=== PATIENT | male | born 1995 | race Caucasian/White ===

== ENCOUNTER 2025-02-17 05:44 | Emergency (ER) | payer SELFPAY ==
--- NOTE | ~2025-02-17 | CT_ITS ---
CLINICAL HISTORY: left facial numbness CT head without contrast Comparison: None provided Findings: No intra-axial mass, midline shift, hydrocephalus, or acute hemorrhage. No significant atrophy-like change or white matter disease. Left maxillary mucosal thickening and a right maxillary mucous retention cyst is present. The remaining paranasal sinuses and mastoid air cells are clear. The orbits are unremarkable. There is no acute fracture. IMPRESSION: No acute intracranial findings. This document has been electronically signed by: Rober Eller MD on 02/17/2025 07:12:35
[2025-02-17 05:47] VITALS: BP 139/97; PULSE 100; RESP 15; TEMP 36.7; O2SAT 99; BMI 40.0
[2025-02-17 06:00] VITALS: BP 139/97; PULSE 100; RESP 15; TEMP 36.7; O2SAT 99
--- NOTE | 2025-02-17 06:01 | PC.NURSE ---
RN did a neuro assessment on pt. Neuros intact no deficit.
--- NOTE | 2025-02-17 06:19 | ECG_ITS ---
Test Reason : LEFT FACIAL NUMBNESS Blood Pressure : */* mmHG Vent. Rate : 80 BPM Atrial Rate : 80 BPM P-R Int : 142 ms QRS Dur : 84 ms QT Int : 358 ms P-R-T Axes : 31 15 -10 degrees QTcB Int : 412 ms Normal sinus rhythm Normal ECG When compared with ECG of 21-Apr-2018 17:34, No significant change was found Referred By: Dinah Haynes Electronically Signed By: RADHA KAISER
--- NOTE | 2025-02-17 06:19 | ED.GENADULT ---
HPI - General Adult General Chief complaint: General Medical Stated complaint: left side of face is numb Time Seen by Provider: 02/17/25 06:07 Source: patient and family Mode of arrival: ambulatory Limitations: no limitations History of Present Illness ED Provider: DR. Haynes HPI narrative: 29-year-old male came in for evaluation tingling feeling part of the left cheek since he woke up in the morning, no trauma to the face, no dental plain pain, no headache, vision, no fever, no chills, no sinus problem, no facial weakness or droop. Then patient started to have numbness at the tip of left hand fingers with no weakness, no slurred speech, no double vision, patient's symptoms lasted for about 3-5 minutes, now just feels some weird feeling/tingling sensation on the left side cheek. Patient feels anxious about it. Related Data Allergies Allergy/AdvReac Type Severity Reaction Status Date / Time No Known Allergies Allergy Verified 02/17/25 05:50 Review of Systems Review of Systems: All other systems are reviewed and are negative Constitutional: Reports as per HPI and Reports no additional constitutional complaints Eyes: Reports as per HPI and Reports no additional eye complaints Reports system reviewed and no additional complaints, except as documented Cardiovascular: Reports as per HPI and Reports no additional cardiovascular complaints Respiratory: Reports as per HPI and Reports no additional respiratory complaints Gastrointestinal: Reports as per HPI and Reports no additional gastrointestinal complaints Genitourinary: Reports no additional female genitourinary complaints Musculoskeletal: Reports no additional musculoskeletal complaints Skin/Breast: Reports system reviewed and no additional complaints, except as docu Psychiatric: Reports no additional psychiatric complaints Endocrine: Reports no additional endocrine complaints Hematologic/Lymphatic: Reports no additional hematologic/lymphatic complaints Allergic/Immunologic: Reports no additional allergic/immunologic complaints Reports system reviewed and no additional complaints, except as documented and Reports Abnormal speech present [facility] Social History Social History Smoked in Last 30 Days: No Use of substances other than those prescribed or required for medical reasons: No Do you have a plan to hurt others: No Plan Physical Exam ED Vital Signs: Vital Signs - 24 hr 02/17/25 05:47 02/17/25 06:00 Temperature 98.0 F 98.0 F Pulse Rate 100 100 Respiratory Rate 15 15 Blood Pressure 139/97 H 139/97 H Pulse Oximetry 99 99 Oxygen Delivery Method Room Air Room Air BMI result Body Mass Index 40.0 Vital signs have been reviewed and appear to be correct. Blood pressure elevated. Heart rate normal. Respiratory rate normal. Temperature normal. Oxygen saturation normal. Appearance: Alert. Oriented X3. No acute distress. Head: Normal external exam. Normocephalic. Atraumatic. No Mast signs noted. No raccoon eyes noted Eyes: PERRLA. EOMI. Conjunctiva and sclera normal. Eyelids normal. ENT: TM's Normal. Pharynx normal. Uvula midline. Moist mucous membranes. No trismus noted. No drooling noted. No muffled voice noted. Neck: Normal inspection. Neck supple. FROM. No adenopathy. Thyroid Normal. No meningeal signs. No neck mass noted. CVS: Normal heart rate and rhythm. Heart sound normal. No murmurs noted. Pulses normal throughout. Respiratory: No respiratory distress. Painless inspiration. Breath sounds normal. No wheezes/rales/rhonchi noted. Chest nontender. No accessory muscle usage noted or decreased air movement noted. Abdomen: Soft and nontender. Bowel sounds normal in all 4 quadrants. No distention noted. No organomegaly noted. No visible injury noted. Back: No CVA tenderness. Full range of motion noted. Skin: Skin warm and dry. Normal skin color. Normal skin turgor. No rashes/lesions/lacerations noted. Extremities: No lower extremity edema. Extremities exhibit normal range of motion. Extremities nontender. Neuro: Mental status: Normal attention, orientation, memory, and affect. Cranial nerves: Pupils are equal, round and reactive to light, EOMI, visual molina are fall, face is symmetric, facial sensations are normal. Motor examination normal muscle tone, strength to 4 extremities. DTR are +2, planter's are flexor. Sensory exam; normal coordination, no ataxia, gait stable. Cerebellar exam: Phjevn-[id number] and aacf-ci-fuys is normal. Extrapyramidal system: No tremors, no rigidity with normal facial expressions. Pronator drift not present NIH Stroke Scale Time: 06:31 Level of Consciousness: Alert Level of Consciousness Questions: Answers both questions correctly Level of Consciousness Commands: Performs both tasks correctly Best Gaze: Normal Visual: No visual loss Facial Palsy: Normal Motor Arm (Right): No drift Motor Arm (Left): No drift Motor Leg (Right): No drift Motor Leg (Left): No drift Limb Ataxia: Absent Sensory: Normal Best Language: No aphasia Dysarthia: Normal Extinction and Inattention: No abnormality Score: 0 Course Reevaluation(s) Reevaluation #1: Normal neuro exam, night and is CT, NIH score of 0, no major deficits, exam is reassuring for finding deficit or findings. Patient was reassured. Time: 07:39 Medical Decision Making Differential Diagnosis Differential Diagnoses: The differential diagnosis associated with the presentation includes (Anxiety, Ray's palsy, atypical minor stroke, electrolyte derangement, dysrhythmia.) Admission/Observation Consideration of admission/observation: Escalation of care including admission/observation considered Lab Data MDM Lab Attestation statement: I reviewed the patient's lab results. 02/17/25 06:39 02/17/25 06:39 Labs: Lab Results 02/17/25 Range/Units 06:39 WBC 8.5 (4.8-10.8) X10*3/uL RBC 5.72 (4.60-5.80) X10*6/uL Hgb 15.6 (14.0-18.0) g/dl Hct 47.5 (42.0-52.0) % MCV 83.0 (80.0-98.0) fL MCH 27.3 (27.0-33.0) pg MCHC 32.8 (31.0-36.0) g/dl RDW 13.8 (11.0-16.0) % Plt Count 368 (160-400) X10*3/uL MPV 8.7 L (9.4-12.4) fL Immature Gran % (Auto) 0.4 (0.0-0.4) % Neut % (Auto) 59.6 (45-73) % Lymph % (Auto) 31.1 (20-40) % [place] % (Auto) 7.3 (2-11) % Eos % (Auto) 1.1 (0-4) % Baso % (Auto) 0.5 (0-2) % Lymph # (Auto) 2.7 (1.2-4.9) X10*3/uL [place] # (Auto) 0.6 (0.1-1.2) X10*3/uL Eos # (Auto) 0.1 (0.0-0.4) X10*3/uL Baso # (Auto) 0.0 (0.0-0.2) X10*3/uL Abs Immat Gran (auto) 0.03 (0.00-0.03) X10*3/uL Absolute Neuts (auto) 5.1 (2.0-8.3) x10*3/uL Absolute Nucleated RBC 0.000 (0.0-0.012) X10*3/uL Nucleated RBC % (auto) 0.0 (0.0-0.2) /100WBC Sodium 139 (135-145) mmol/L Potassium 4.1 (3.3-5.1) mmol/L Chloride 105 (96-108) mmol/L Carbon Dioxide 26 (22-29) mmol/L Anion Gap 12 (12-20) BUN 20 H (9-16) mg/dL Creatinine 1.05 (0.5-1.4) mg/dL Estim Creat Clear Calc 136.1 Estimated GFR > 60 Random Glucose 96 (60-115) mg/dL Calcium 9.4 (8.4-10.2) mg/dL Troponin I High Sens < 2.7 (<3.5-35.0) ng/L Independent Interpretation I performed an independent interpretation of an: EKG (Normal sinus rhythm at 80 beats per minutes, normal intervals, no ST-T changes.) and CT Scan (Head: No acute intracranial pathology.) Radiology Impression Discussion of test interpretation with radiology: I have reviewed the radiologist's reading. Discharge Plan Discharge Clinical Impression: Facial paresthesia Patient Disposition: Home, Self-Care Instructions: Paresthesia (ED) Additional Instructions: Follow-up with your primary doctor in 1 week. Seek immediate medical attention if having any weakness, speech abnormality, worsening of the symptoms. Print Language: Scottish
[2025-02-17 06:43] LABS: MANUAL DIFF FLAG NO
[2025-02-17 06:48] LABS: Hematocrit 47.5 % (42.0-52.0); Hemoglobin 15.6 g/dl (14.0-18.0); Imm Gran Abs Auto 0.03 X10*3/uL (0.00-0.03); Imm Gran Pct Auto 0.4 % (0.0-0.4); Lymphocytes Absolute Auto 2.7 X10*3/uL (1.2-4.9); Mean Corpuscular HGB Conc 32.8 g/dl (31.0-36.0); Mean Corpuscular Hemoglobin 27.3 pg (27.0-33.0); Mean Corpuscular Volume 83.0 fL (80.0-98.0); NRBC Abs Auto 0.000 X10*3/uL (0.0-0.012); NRBC Pct Auto 0.0 /100WBC (0.0-0.2); Platelet Count 368 X10*3/uL (160-400); Red Blood Count 5.72 X10*6/uL (4.60-5.80); White Blood Count 8.5 X10*3/uL (4.8-10.8)
[2025-02-17 07:08] LABS: Anion Gap 12 (12-20); Blood Urea Nitrogen 20 mg/dL (9-16); Calcium 9.4 mg/dL (8.4-10.2); Carbon Dioxide 26 mmol/L (22-29); Chloride 105 mmol/L (96-108); Creatinine Clr Calc Pharmacy 136.1; Estimated Glomerular Filt Rate > 60; Potassium 4.1 mmol/L (3.3-5.1); Sodium 139 mmol/L (135-145)
[2025-02-17 07:09] LABS: Troponin-I High Sensitivity < 2.7 ng/L (<3.5-35.0)
[2025-02-17 07:44] VITALS: BP 139/97; PULSE 100; RESP 15; TEMP 36.7; O2SAT 99
--- OUTSIDE RECORDS SUMMARY | 2025-02-17 15:15 | XMS_ITS | Clinical Summary ---
Author Organization [facility] Address [address] [place] [address] [place] [phone] Phone Care Team Providers Care Utility [employer] Name Role Phone Pcp, Unknown Primary Care Provider Unavailabl e Allergies Active Allergy Reactions Criticality Noted Date Comments Cinnamon 01/12/2025 Medications LORazepam (ATIVAN) 0.5 MG tablet Take 1 tablet (0.5 mg total) by mouth every 6 (six) hours as needed for anxiety. 10 tablet 01/12/2025 Active Encounters Date Type Department Care Team Description 01/12/2025 2:42 PM EDT - 01/12/2025 6:44 PM EDT Emergency [facility] [address] [place] [address] Discharge Disposition: Home or Self Care from Last 3 Months Social History Tobacco Use Types Packs/Day Years Used Date Smoking Tobacco: Never Assessed Education Answer Date Recorded Are you interested in more education? Not on [place] e 01/12/2025 Are you concerned about learning? Not on file 01/12/2025 No 01/12/2025 No 01/12/2025 Food Answer Date Recorded Within the past 6 months we worried whether our food would run out before we got money to buy more. Never True 01/12/2025 Within the past 6 months the food we bought just didn't last and we didn't have enough money to get more. Never True Residential Stability Answer Date Recor ded What is your housing situation today? I have desiree sing 01/12/2025 How many times have you move d in the past 12 months? Zero (I did not move) 01/12/2025 Paying for Meds Answer Date Recorded Do you have trouble paying for medicines? No 01/12/2025 Paying Utility Bills Answer Date Record ed Do you have trouble paying your heating or elect ricity bill? No 01/12/2025 Transportation Answer Date Recorded Has the lack of transportati on kept you from medical appointments or from getting medications? No 01/12/2025 Digital Access Answer Date Recorded No 01/12/2025 Yes 01/12/2025 Do you have reliable internet access at home? Ye s 01/12/2025 Do you have a device (e.g., phone, tablet, computer) with a working camera? Yes 01/12/2025 Intimate Partner Violence Answer Date R ecorded Are you denied basic needs s uch as food, clothing, or medical care? No 01/12/2025 In the past 12 months have y ou been in a relationship with a person who hurts, threatens, or tries to control you? No 01/12/2025 Are you denied basic needs s uch as food, clothing, or medical care? No 01/12/2025 In the past 12 months have y ou been in a relationship with a person who hurts, threatens, or tries to control you? No 01/12/2025 Sex and Gender Information Value Date Recorded Sex Assigned at Male 01/12/2025 4:11 PM EDT Legal Sex Male 2:16 PM EDT Gender Identity Male 01/12/2025 4:11 PM EDT Sexual Orientation Straight 01/12/2025 4: 11 PM EDT Last Filed Vital Signs Vital Sign Reading Time Taken Comments Blood Pressure 128/86 01/12/2025 6:38 PM EDT Pulse 87 01/12/2025 6:38 PM EDT Temperature 36.3 C (97.3 F) 01/12/2025 6:38 PM EDT Respiratory Rate 16 01/12/2025 6:38 PM EDT Oxygen Saturation 98% 01/12/2025 6:38 PM EDT Inhaled Oxygen Concentration - - Weight 122.5 kg (270 lb) 01/12/2025 2:28 PM EDT Height 177.8 cm (5' 10 ) 01/12/2025 2:28 PM EDT Body Mass Index 38.74 01/12/2025 2:28 PM EDT Plan of Treatment Health Maintenance Due Date Last Done Comments Adult Td,Tdap Booster 1993 DEPRESSION SCREENING 2005 SMOKING Hx and SMOKELESS TOB ACCO SCREENING 2006 HEPATITIS C SCREENING 10/05/2011 HIV ONE-TIME SCREENING (18-6 5 YEARS) 10/05/2011 INFLUENZA VACCINE (#1) 2024 COVID-19 VACCINE (2024-2 6 season) 2024 HEPATITIS A VACCINES Aged Out No long er eligible based on patient's age to complete this topic HIB VACCINES Aged Out No longer eligi ble based on patient's age to complete this topic IPV VACCINES Aged Out No longer eligi ble based on patient's age to complete this topic MENINGOCOCCAL VACCINES (ACWY) Aged Out No longer eligible based on patient's age to complete this topic MENINGOCOCCAL VACCINES (B) Aged Out N o longer eligible based on patient's age to complete this topic PNEUMOCOCCAL VACCINES (0-49 years) Aged Out No longer eligible based on patient's age to complete this topic Medical Devices Not on file Procedures Procedure Name Priority Date/Time Associated Diagnosis Comments TROPONIN STAT 01/12/2025 5:55 PM EDT NT-PROBNP STAT 01/12/2025 4:58 PM EDT TROPONIN STAT 01/12/2025 4:58 PM EDT LIPASE STAT 01/12/2025 4:58 PM EDT LFTS (HEPATIC PANEL) STAT 01/12/2025 4:58 PM EDT BASIC METABOLIC PANEL (BMP) STAT 01/12/2025 4:58 PM EDT CBC AND DIFFERENTIAL STAT 01/12/2025 4:58 PM EDT XR CHEST PA AND LATERAL 2 VIEWS Routine 01/12/2025 4:55 PM EDT POCT GLUCOSE STAT 01/12/2025 4:11 PM EDT POCT GLUCOSE Routine 01/12/2025 4:09 PM EDT ECG 12-LEAD STAT 01/12/2025 3:28 PM EDT from Last 3 Months Results * Troponin (01/12/2025 5:55 PM EDT) Only the most recent of2 resultswithin the time period is included. Troponin-T, HS Gen5 <6 0 - 14 ng/L [facility] Blood 01/12/2025 5:55 PM EDT 01/12/2025 6:04 PM EDT us Geoffrey Chaney PA-C LAB BLOOD BKR ORDERABLES Rosalva campos Result [address] [address] * (ABNORMAL) LFTs (hepatic panel) (01/12/2025 4:58 PM EDT) ALKALINE PHOSPHATASE 68 39 - 117 U/L [facility] TOTAL BILIRUBIN 0.5 0.0 - 1.2 mg/dL [facility] DIRECT BILIRUBIN 0.1 0.0 - 0.2 mg/dL [facility] Bilirubin (Indirect) NOT CALCULATED 0 - 1.5 mg/dL [facility] AST 19 0 - 37 U/L [facility] ALT 33 0 - 40 U/L [facility] TOTAL PROTEIN 8.3(H) 6.5 - 8.0 g/dL [facility] ALBUMIN 4.4 3.9 - 4.8 g/dL [facility] GLOBULIN 3.9 1 - 4.8 g/dL [facility] A/G Ratio 1.13 1.00 - 4.80 RATIO [facility] Blood 01/12/2025 4:58 PM EDT 01/12/2025 5:17 PM EDT Geoffrey Chaney PA-C LAB BLOOD BKR ORDERABLES Rosalva andres Result [facility] [address] [place] [address] * (ABNORMAL) CBC and differential (01/12/2025 4:58 PM EDT) WBC 8.78 4.00 - 11.00 K/uL [facility] RBC 5.73 4.50 - 5.90 M/uL [facility] HGB 15.4 13.5 - 17.5 g/dL [facility] HCT 47.9 41.0 - 53.0 % [facility] PLT 427 150 - 450 K/uL [facility] MCV 83.6 80.0 - 100.0 fL [facility] MCH 26.9(L) 27.0 - 31.0 pg [facility] MCHC 32.2 32.0 - 36.0 g/dL [facility] RDW 13.7 11.5 - 14.5 % [facility] MPV 9.3 8.4 - 12.0 fL [facility] NRBC 0.00 0.00 /100 WBCs [facility] ABSOLUTE NRBC 0.00 0.00 K/uL [facility] DIFF METHOD Auto [facility] NEUTS 75.7 48.0 - 76.0 % [facility] LYMPHS 19.5 18.0 - 41.0 % [facility] MONOS 4.1 4.0 - 11.0 % [facility] EOS 0.1 0.0 - 5.0 % [facility] BASOS 0.3 0.0 - 1.5 % [facility] Granulocytes, immature (%) 0.3 0.0 - 0.9 % [facility] ABSOLUTE NEUTS 6.64 1.92 - 7.60 K/uL [facility] ABSOLUTE LYMPHS 1.71 0.72 - 4.10 K/uL [facility] ABSOLUTE MONOS 0.36 0.16 - 1.10 K/uL [facility] ABSOLUTE EOS 0.01 0.00 - 0.50 K/uL [facility] ABSOLUTE BASOS 0.03 0.00 - 0.15 K/uL [facility] Granulocytes, immature 0.03 0.00 - 0.09 K/uL [facility] Blood 01/12/2025 4:58 PM EDT 01/12/2025 5:17 PM EDT Geoffrey Chaney PA-C LAB BLOOD BKR ORDERABLES Rosalva l Result Performing Organization Address [facility]/ZIP Co de Phone Number [address] [address] * NT-proBNP (01/12/2025 4:58 PM EDT) NT-PROBNP <36 0 - 125 pg/mL [facility] Blood 01/12/2025 4:58 PM EDT 01/12/2025 5:17 PM EDT Geoffrey Chaney PA-C LAB BLOOD BKR ORDERABLES Rosalva l Result Performing Organization Address [facility] Co de Phone Number [address] [address] * Lipase (01/12/2025 4:58 PM EDT) LIPASE 24 16 - 63 U/L [facility] Blood 01/12/2025 4:58 PM EDT 01/12/2025 5:17 PM EDT Geoffrey Chaney PA-C LAB BLOOD BKR ORDERABLES Rosalva l Result Performing Organization Address [facility]/ZIP Co de Phone Number [address] [address] * Basic metabolic panel (01/12/2025 4:58 PM EDT) SODIUM 138 133 - 146 mmol/L [facility] CHLORIDE 102 96 - 108 mmol/L [facility] POTASSIUM 4.6 3.3 - 5.1 mmol/L [facility] CO2 24 21 - 35 mmol/L [facility] BUN 11 6 - 19 mg/dL [facility] CREATININE 0.80 0.5 - 1.5 mg/dL [facility] GLUCOSE 86 70 - 99 mg/dL [facility] CALCIUM 10.0 8.4 - 10.3 mg/dL [facility] EGFR >120 >59 mL/min/1.7 3m2 [facility] Comment:Estimated glomerular filtration rate calculated using the CKD-EPI refit equation. ANION GAP 17 10 - 20 mmol/L [facility] Blood 01/12/2025 4:58 PM EDT 01/12/2025 5:17 PM EDT us Geoffrey Chaney PA-C LAB BLOOD BKR ORDERABLES Rosalva andres Result [address] [address] * XR CHEST PA AND LATERAL 2 VIEWS (01/12/2025 4:55 PM EDT) Anatomical Region Laterality Modality Chest Computed Radiogr aphy 01/12/2025 5:40 PM EDT Impressions 01/12/2025 5:41 PM EDT No acute abnormality. Narrative 01/12/2025 5:41 PM EDT XR CHEST PA AND LATERAL 2 VIEWS Referring clinician's provided indication for this examination in Epic: Pain COMPARISON: None FINDINGS: Devices/Tubes/Lines: None. Lungs: No focal consolidation or pulmonary edema. Pleura: No pleural effusion or pneumothorax. Heart/Mediastinum: Normal heart and mediastinum. Bones/Soft Tissues: No significant abnormality. Procedure Note Matthew Luciano MD - 01/12/2025 XR CHEST PA AND LATERAL 2 VIEWS Referring clinician's provided indication for this examination in Epic:Pain COMPARISON: None FINDINGS: Devices/Tubes/Lines: None. Lungs: No focal consolidation or pulmonary edema. Pleura: No pleural effusion or pneumothorax. Heart/Mediastinum: Normal heart and mediastinum. Bones/Soft Tissues: No significant abnormality. IMPRESSION: No acute abnormality. us Geoffrey Chaney PA-C IMG XR CHEST Final Result * POCT Glucose (01/12/2025 4:11 PM EDT) Glucose 78 70 - 100 mg/dL 01/12/2025 4:11 PM EDT us Geoffrey Chaney PA-C LAB POCT ENTER/EDIT ORDERABLE S Final Result * POCT Glucose (01/12/2025 4:09 PM EDT) Glucose, POCT 78 70 - 100 mg/dL [facility] 01/12/2025 4:09 PM EDT 01/12/2025 4:20 PM EDT us Unknown Unknown POINT OF CARE TEST ORDERABLES Final Result Performing Organization Address [facility] Co de Phone Number [address] [address] * ECG 12-LEAD (01/12/2025 3:28 PM EDT) Ventricular Rate EKG/MIN 96 BPM [facility] Atrial Rate 96 BPM [facility] DC Interval 124 ms [facility] QRS Duration 66 ms [facility] QT Interval 338 ms [facility] QTC Interval 427 ms [facility] P [place] 26 degrees [facility] R Wave [place] 20 degrees [facility] T Wave [place] 16 degrees [facility] 01/12/2025 3:28 PM EDT 01/13/2025 11:06 AM EDT Narrative [facility] - 01/13/2025 11:06 AM EDT Normal sinus rhythm Normal ECG No previous ECGs available Confirmed by Dannie Thacker ([id number]) on 01/13/2025 11:06:36 AM us Andrei Felder MD ECG ORDERABLES Final Result [facility] from Last 3 Months Insurance [facility] [employer] Care Teams Utility Aircrewman Relationship Specialty Start Date End Date Pcp, Unknown PCP - General 01/12/25 Additional Source Comments The information contained in this document represents components of the legal health record. It is not the complete legal health record.[facility]
== END 2025-02-17 07:53 | disposition home or self-care (01) ==
PROVIDERS: Emergency Provider Emergency Medicine
DX: R20.2 Paresthesia of skin (principal); R20.0 Anesthesia of skin
CPT/HCPCS: 36415; 70450; 80048; 84484; 85025; 93005; 99284

== ENCOUNTER → 2025-02-17 06:18 | Outpatient (BNV) | payer SELFPAY | PROVIDERS: Emergency Provider Emergency Medicine; Visit Provider Radiology Vascular & Interventional Radiology | DX: R20.0 Anesthesia of skin (principal) | CPT/HCPCS: 70450 ==

== ENCOUNTER → 2025-02-17 06:19 | Outpatient (BNV) | payer SELFPAY | PROVIDERS: Emergency Provider Emergency Medicine; Visit Provider Internal Medicine | DX: R20.2 Paresthesia of skin (principal) | CPT/HCPCS: 93010 ==

== ENCOUNTER 2025-02-23 15:18 | Emergency (ER) | payer SELFPAY ==
--- NOTE | ~2025-02-23 | CT_ITS ---
CLINICAL HISTORY: r o R mastoiditis, ear pain Exam: Nonenhanced CT of the temporal bones with multiplanar reformats. Comparison: None. Findings: Right temporal bone: External auditory canal is patent. Middle ear cavity is patent. No definable tympanic membrane thickening. Auditory ossicles appear unremarkable. Mastoid air cells are well-aerated. Cochlear and labyrinthine structures appear unremarkable. Seventh nerve canal appears unremarkable. Internal auditory canal appears unremarkable. No osseous erosion or temporal bone lesions are appreciated. Left temporal bone: External auditory canal is patent. Middle ear cavity is patent. No definable tympanic membrane thickening. Auditory ossicles appear unremarkable. Mastoid air cells are well-aerated. Cochlear and labyrinthine structures appear unremarkable. Seventh nerve canal appears unremarkable. Internal auditory canal appears unremarkable. No osseous erosion or temporal bone lesions are appreciated. Impression: Unremarkable temporal bone CT. This document has been electronically signed by: Dilip Snyder MD on 02/23/2025 17:42:35
--- NOTE | 2025-02-23 15:36 | ED.GENADULT ---
HPI - General Adult General Chief complaint: Skin/Abscess/Foreign Body Stated complaint: Facial swelling Time Seen by Provider: 02/23/25 16:04 History of Present Illness ED Provider: Ronda Alba [facility] narrative: 29-year-old male no significant self-reported medical history presents to the ED with chief complaint of right-sided facial swelling, redness, and pain. He reports that he noticed a small lump to the right side of the face, near the ear, and jaw. There is a bit of itching in this area as well. He is concerned he may be developing a rash. He has developed a small amount of ear pain, but no drainage, tinnitus. He denies any fever, chills. No chest pain or pressure, shortness of breath, abdominal pain, nausea or vomiting. No sore throat, coughing or recent illnesses. Related Data Previous Rx's ?Medication ?Instructions ?Recorded amoxicillin 875 mg-potassium 1 tab PO BID 7 days #14 tabs 02/23/25 clavulanate 125 mg tablet Allergies Allergy/AdvReac Type Severity Reaction Status Date / Time cinnamon AdvReac Anaphylaxis Verified 02/23/25 15:39 Review of Systems Review of Systems: ROS is otherwise negative unless mentioned in HPI. [facility] Social History Social History Advance Directives: No Advance Directives Information Provided: No Physical Exam ED Exam Exam: Nursing notes and vital signs reviewed. Constitutional: Well-appearing, NAD. Alert. Oriented X3. Eyes: EOMI. ENT: Oropharynx pink, moist. Midline uvula. TM on left is pearly fisher, TM on right is erythematous. Nares patent bilaterally. Neck: Normal inspection. Neck supple. Swelling to the right TM joint area, mildly pink in color without warmth. CVS: Pulses normal. Respiratory: No respiratory distress. Abdomen: Soft and nontender, nondistended. Skin: Skin warm and dry. Normal skin color. Extremities: No lower extremity edema. Neuro: Oriented X 3. No motor deficit. Vital Signs: Vital Signs - 24 hr 02/23/25 15:37 Temperature 98.3 F Pulse Rate 79 Respiratory Rate 18 Blood Pressure 160/97 H Pulse Oximetry 100 Oxygen Delivery Method Room Air BMI result Body Mass Index 40.6 Course Course Course Narrative: This is a rapid medical exam performed by Favian Zuniga NP: Additional HPI, ROS, PE not included below will be deferred to primary provider. Patient is a 29y/o M presenting to the ED with complaint of right sided facial swelling since yesterday, worse this morning. Denies dental or ear pain. Seen here on 02/17 for facial paresthesia and had CT. TM normal in triage, no obvious abscess. Plan: labs Medications Administered Discontinued Medications Generic Name Dose Route Start Last Admin Trade Name Eduin PRN Reason Stop Dose Admin Amoxicillin/Clavulanate Potassium 875 mg 02/23/25 16:40 02/23/25 16:51 Amoxicillin/Potassium Clav 875 Mg Tablet PO 02/23/25 16:41 875 mg ONCE ONE Administration Medical Decision Making Medical Decision Making [facility] Narrative: Clinically he overall appears well. There is a mild amount of swelling localized to the right TMJ area, he tells me this has developed over the period of 1-2 days. It is mildly pink, he tells me it has been red and warm, as well as painful. He also tells me there is now itching involved. I clinically do not see any rash, I considered folliculitis but this is unlikely. I also have clinical concern for mastoiditis given the erythematous TM, and parotitis. Will administer a dose of Augmentin PO given likely underlying AOM, and obtain CT imaging of the mastoid bones. His CRP was elevated, ESR is pending. No leukocytosis, lab work otherwise reassuring. This could also be a reactive lymph node, but we will add on SARS panel and reassess. 1805-- ESR is flat. CT shows no evidence of mastoiditis. Likely reactive lymph node from AOM. We will discharge home with Augmentin and have him follow up with PCP within the next few days. Given return precautions. Patient is agreeable. Differential Diagnosis Differential Diagnoses: The differential diagnosis associated with the presentation includes mastoiditis, parotitis, sialoadenitis, AOM, reactive lymph nodes Admission/Observation Consideration of admission/observation: Escalation of care including admission/observation considered (not indicated) Lab Data [facility] Lab Attestation statement: I reviewed the patient's lab results. (Reassuring, elevated CRP) 02/23/25 16:10 02/23/25 16:10 Labs: Lab Results 02/23/25 02/23/25 Range/Units 16:10 16:50 WBC 7.2 (4.8-10.8) X10*3/uL RBC 5.85 H (4.60-5.80) X10*6/uL Hgb 15.6 (14.0-18.0) g/dl Hct 48.2 (42.0-52.0) % MCV 82.4 (80.0-98.0) fL MCH 26.7 L (27.0-33.0) pg MCHC 32.4 (31.0-36.0) g/dl RDW 13.7 (11.0-16.0) % Plt Count 379 (160-400) X10*3/uL MPV 8.9 L (9.4-12.4) fL Immature Gran % (Auto) 0.4 (0.0-0.4) % Neut % (Auto) 64.3 (45-73) % Lymph % (Auto) 28.7 (20-40) % Gaines % (Auto) 5.4 (2-11) % Eos % (Auto) 0.8 (0-4) % Baso % (Auto) 0.4 (0-2) % Lymph # (Auto) 2.1 (1.2-4.9) X10*3/uL Gaines # (Auto) 0.4 (0.1-1.2) X10*3/uL Eos # (Auto) 0.1 (0.0-0.4) X10*3/uL Baso # (Auto) 0.0 (0.0-0.2) X10*3/uL Abs Immat Gran (auto) 0.03 (0.00-0.03) X10*3/uL Absolute Neuts (auto) 4.6 (2.0-8.3) x10*3/uL Absolute Nucleated RBC 0.000 (0.0-0.012) X10*3/uL Nucleated RBC % (auto) 0.0 (0.0-0.2) /100WBC ESR 10 (0-15) MM/HR Sodium 141 (135-145) mmol/L Potassium 4.2 (3.3-5.1) mmol/L Chloride 107 (96-108) mmol/L Carbon Dioxide 27 (22-29) mmol/L Anion Gap 11 L (12-20) BUN 13 (9-16) mg/dL Creatinine 0.84 (0.5-1.4) mg/dL Estim Creat Clear Calc 171.5 Estimated GFR > 60 Random Glucose 99 (60-115) mg/dL Calcium 9.0 (8.4-10.2) mg/dL Total Bilirubin 0.3 (0.0-1.0) mg/dL AST 26 (5-37) U/L ALT 47 H (0-40) U/L Alkaline Phosphatase 75 (39-117) U/L C-Reactive Protein 1.22 H (< or = 0.50) mg/dL Total Protein 7.9 (6.5-8.0) g/dL Albumin 4.6 (3.5-5.0) g/dL Influenza Type A (PCR) NEGATIVE (Negative) Influenza Type B (PCR) NEGATIVE (Negative) RSV RNA Qual (PCR) NEGATIVE (Negative) SARS-CoV-2 RNA (RT-PCR) NEGATIVE (Negative) Independent Interpretation I performed an independent interpretation of an: CT Scan Interpretation: CT Mastoid: Impression: Unremarkable temporal bone CT. Radiology Impression Discussion of test interpretation with radiology: I have reviewed the radiologist's reading. Independent Historian Clinical information obtained from an independent historian. History obtained from or confirmed by: Spouse External Record Review External record reviewed: Other (prior ER visit) Social Determinants Patient?s care significantly limited by Social Determinants of Health including: Problems related to primary support group Discharge Plan Discharge Clinical Impression: Acute ear infection Patient Disposition: Home, Self-Care Instructions: Ear Infection (ED) Additional Instructions: As we discussed, your workup today was overall reassuring. You had a CT scan of the mastoid bones, part of the ear, which does not show any evidence of infection at this time. Given the very small amount of swelling that is around your ear, we are placing you on antibiotics called Augmentin. Please complete the full course of the antibiotic as prescribed. Please take this medication with food as it may cause some GI upset. If you not feel better or see improvement over the next 24-48 hours, please present back to the ED for reassessment. Follow up with the PCP within the next 1-2 days. Prescriptions: New amoxicillin-pot clavulanate 875-125 mg tablet 1 tab PO BID 7 Days Qty: 14 0RF [place] [facility] [place] [facility] [place] Group] Print Language: [place]
[2025-02-23 15:37] VITALS: BP 160/97; PULSE 79; RESP 18; TEMP 36.8; O2SAT 100; BMI 40.6
[2025-02-23 16:15] LABS: MANUAL DIFF FLAG NO
[2025-02-23 16:16] LABS: Hematocrit 48.2 % (42.0-52.0); Hemoglobin 15.6 g/dl (14.0-18.0); Imm Gran Abs Auto 0.03 X10*3/uL (0.00-0.03); Imm Gran Pct Auto 0.4 % (0.0-0.4); Lymphocytes Absolute Auto 2.1 X10*3/uL (1.2-4.9); Mean Corpuscular HGB Conc 32.4 g/dl (31.0-36.0); Mean Corpuscular Hemoglobin 26.7 pg (27.0-33.0); Mean Corpuscular Volume 82.4 fL (80.0-98.0); NRBC Abs Auto 0.000 X10*3/uL (0.0-0.012); NRBC Pct Auto 0.0 /100WBC (0.0-0.2); Platelet Count 379 X10*3/uL (160-400); Red Blood Count 5.85 X10*6/uL (4.60-5.80); White Blood Count 7.2 X10*3/uL (4.8-10.8)
[2025-02-23 16:29] LABS: Alanine Aminotransferase 47 U/L (0-40); Albumin Level 4.6 g/dL (3.5-5.0); Alkaline Phosphatase 75 U/L (39-117); Anion Gap 11 (12-20); Aspartate Amino Transferase 26 U/L (5-37); Blood Urea Nitrogen 13 mg/dL (9-16); Calcium 9.0 mg/dL (8.4-10.2); Carbon Dioxide 27 mmol/L (22-29); Chloride 107 mmol/L (96-108); Creatinine Clr Calc Pharmacy 171.5; Estimated Glomerular Filt Rate > 60; Potassium 4.2 mmol/L (3.3-5.1); Sodium 141 mmol/L (135-145); Total Protein 7.9 g/dL (6.5-8.0)
[2025-02-23 17:02] LABS: Erythrocyte Sedimentation Rate 10 MM/HR (0-15)
[2025-02-23 17:33] LABS: Resp Syncy Virus RNA Qual PCR NEGATIVE (Negative); SARS COV2 PCR INHOUSE NEGATIVE (Negative)
[2025-02-23 18:23] VITALS: BP 160/97; PULSE 79; RESP 18; TEMP 36.8; O2SAT 100
--- OUTSIDE RECORDS SUMMARY | 2025-02-23 19:20 | XMS_ITS | Clinical Summary ---
Author Organization [facility] Address [address] [place] [address] [place] [phone] Phone Care Team Providers Care Credentials Specialist Name Role Phone Pcp, Unknown Primary Care [...] 6:44 PM EDT Emergency [facility] [address] [place] [address] Discharge Disposition: Home or Self Care from [...] HS Gen5 <6 0 - 14 ng/L [facility] Blood 01/12/2025 5:55 PM EDT 01/12/2025 6:04 PM EDT Geoffrey Chaney PA-C LAB BLOOD BKR ORDERABLES Rosalva l Result [address] [address] * (ABNORMAL) LFTs (hepatic panel) (01/12/2025 4:58 PM EDT) ALKALINE PHOSPHATASE 68 39 - 117 U/L [facility] TOTAL BILIRUBIN 0.5 0.0 - 1.2 mg/dL [facility] DIRECT BILIRUBIN 0.1 0.0 - 0.2 mg/dL [facility] Bilirubin (Indirect) NOT CALCULATED 0 - 1.5 mg/dL [facility] AST 19 0 - 37 U/L [facility] ALT 33 0 - 40 U/L [facility] TOTAL PROTEIN 8.3(H) 6.5 - 8.0 g/dL [facility] ALBUMIN 4.4 3.9 - 4.8 g/dL [facility] GLOBULIN 3.9 1 - 4.8 g/dL [facility] A/G Ratio 1.13 1.00 - 4.80 RATIO [facility] Blood 01/12/2025 4:58 PM EDT 01/12/2025 5:17 PM EDT Geoffrey Chaney PA-C LAB BLOOD BKR ORDERABLES Rosalva l Result [facility] [address] [place] [address] * (ABNORMAL) CBC and differential (01/12/2025 4:58 PM EDT) WBC 8.78 4.00 - 11.00 K/uL [facility] RBC 5.73 4.50 - 5.90 M/uL [facility] HGB 15.4 13.5 - 17.5 g/dL [facility] HCT 47.9 41.0 - 53.0 % [facility] PLT 427 150 - 450 K/uL [facility] MCV 83.6 80.0 - 100.0 fL [facility] MCH 26.9(L) 27.0 - 31.0 pg [facility] MCHC 32.2 32.0 - 36.0 g/dL [facility] RDW 13.7 11.5 - 14.5 % [facility] MPV 9.3 8.4 - 12.0 fL [facility] NRBC 0.00 0.00 /100 WBCs [facility] ABSOLUTE NRBC 0.00 0.00 K/uL [facility] DIFF METHOD Auto [facility] NEUTS 75.7 48.0 - 76.0 % [facility] LYMPHS 19.5 18.0 - 41.0 % [facility] MONOS 4.1 4.0 - 11.0 % [facility] EOS 0.1 0.0 - 5.0 % [facility] BASOS 0.3 0.0 - 1.5 % [facility] Granulocytes, immature (%) 0.3 0.0 - 0.9 % [facility] ABSOLUTE NEUTS 6.64 1.92 - 7.60 K/uL [facility] ABSOLUTE LYMPHS 1.71 0.72 - 4.10 K/uL [facility] ABSOLUTE MONOS 0.36 0.16 - 1.10 K/uL [facility] ABSOLUTE EOS 0.01 0.00 - 0.50 K/uL [facility] ABSOLUTE BASOS 0.03 0.00 - 0.15 K/uL [facility] Granulocytes, immature 0.03 0.00 - 0.09 K/uL [facility] Blood 01/12/2025 4:58 PM EDT 01/12/2025 5:17 PM EDT Geoffrey Chaney PA-C LAB BLOOD BKR ORDERABLES Rosalva l Result [address] [address] * NT-proBNP (01/12/2025 4:58 PM EDT) NT-PROBNP <36 0 - 125 pg/mL [facility] Blood 01/12/2025 4:58 PM EDT 01/12/2025 5:17 PM EDT Geoffrey Chaney PA-C LAB BLOOD BKR ORDERABLES Rosalva l Result Performing Organization Address [facility]/ZIP Co de Phone Number [address] [address] * Lipase (01/12/2025 4:58 PM EDT) LIPASE 24 16 - 63 U/L [facility] Blood 01/12/2025 4:58 PM EDT 01/12/2025 5:17 PM EDT Geoffrey Chaney PA-C LAB BLOOD BKR ORDERABLES Rosalva l Result Performing Organization Address City/[facility]/ZIP Co de Phone Number [address] [address] * Basic metabolic panel (01/12/2025 4:58 PM EDT) SODIUM 138 133 - 146 mmol/L [facility] CHLORIDE 102 96 - 108 mmol/L [facility] POTASSIUM 4.6 3.3 - 5.1 mmol/L [facility] CO2 24 21 - 35 mmol/L [facility] BUN 11 6 - 19 mg/dL [facility] CREATININE 0.80 0.5 - 1.5 mg/dL [facility] GLUCOSE 86 70 - 99 mg/dL [facility] CALCIUM 10.0 8.4 - 10.3 mg/dL [facility] EGFR >120 >59 mL/min/1.7 3m2 [facility] Comment:Estimated glomerular filtration rate calculated using the CKD-EPI refit equation. ANION GAP 17 10 - 20 mmol/L [facility] Blood 01/12/2025 4:58 PM EDT 01/12/2025 5:17 PM EDT us Geoffrey Chaney PA-C LAB BLOOD BKR ORDERABLES Rosalva l Result [facility] [address] [place] [address] * XR CHEST PA AND LATERAL 2 VIEWS (01/12/2025 4:55 PM EDT) Anatomical Region Laterality Modality Chest Computed Radiogr aphy 01/12/2025 5:40 PM EDT Impressions 01/12/2025 5:41 PM EDT No acute abnormality. Narrative 01/12/2025 5:41 PM EDT XR CHEST PA AND LATERAL 2 VIEWS Referring clinician's provided indication for this examination in [facility]: Pain COMPARISON: None FINDINGS: Devices/Tubes/Lines: None. Lungs: No focal consolidation or pulmonary edema. Pleura: No pleural effusion or pneumothorax. Heart/Mediastinum: Normal heart and mediastinum. Bones/Soft Tissues: No significant abnormality. Procedure Note Matthew Luciano MD - 01/12/2025 XR CHEST PA AND LATERAL 2 VIEWS Referring clinician's provided indication for this examination in [facility]:Pain COMPARISON: None FINDINGS: Devices/Tubes/Lines: None. Lungs: No [...] Glucose, POCT 78 70 - 100 mg/dL [facility] 01/12/2025 4:09 PM EDT 01/12/2025 4:20 PM EDT us Unknown Unknown POINT OF CARE TEST ORDERABLES Final Result Performing Organization Address [facility] Co de Phone Number [address] [address] * ECG 12-LEAD (01/12/2025 3:28 PM EDT) Ventricular Rate EKG/MIN 96 BPM [facility] Atrial Rate 96 BPM [facility] OR Interval 124 ms [facility] QRS Duration 66 ms [facility] QT Interval 338 ms [facility] QTC Interval 427 ms [facility] P [place] 26 degrees [facility] R Wave [place] 20 degrees [facility] T Wave [place] 16 degrees [facility] 01/12/2025 3:28 PM EDT 01/13/2025 11:06 AM EDT Narrative [facility] - 01/13/2025 11:06 AM EDT Normal sinus rhythm Normal ECG No previous ECGs available Confirmed by Dannie Thacker ([id number]) on 01/13/2025 11:06:36 AM us Andrei Felder MD ECG ORDERABLES Final Result [facility] from Last 3 Months Insurance [facility] [employer] [employer] Care Teams Credentials Specialist Relationship Specialty Start Date End Date Pcp, Unknown PCP - General 01/12/25 Additional Source Comments The information contained in this document represents components of the legal health record. It is not the complete legal health record.[facility]
== END 2025-02-23 18:23 | disposition home or self-care (01) ==
PROVIDERS: Nurse Practitioner; Registered Nurse Emergency; Emergency Provider Student in an Organized Health Care Education/Training Program
DX: H92.01 Otalgia, right ear (principal); H66.91 Otitis media, unspecified, right ear; R22.0 Localized swelling, mass and lump, head; Z03.818 Encounter for observation for suspected exposure to other biological agents ruled out
CPT/HCPCS: 36415; 70481; 80053; 85025; 85652; 86140; 87637; 99282; 99284

== ENCOUNTER → 2025-02-23 16:37 | Outpatient (BNV) | payer SELFPAY | PROVIDERS: Visit Provider Radiology Diagnostic Radiology | DX: H92.01 Otalgia, right ear (principal) | CPT/HCPCS: 70481 ==

== ENCOUNTER 2025-02-28 23:31 | Emergency (ER) | payer MEDICAID, SELFPAY ==
[2025-02-28 23:36] VITALS: BP 171/68; PULSE 92; RESP 16; TEMP 36.5; O2SAT 98; BMI 40.4
--- NOTE | 2025-02-28 23:45 | ECG_ITS ---
Test Reason : weakness, dizziness Blood Pressure : */* mmHG Vent. Rate : 79 BPM Atrial Rate : 79 BPM P-R Int : 136 ms QRS Dur : 72 ms QT Int : 372 ms P-R-T Axes : 49 22 3 degrees QTcB Int : 426 ms Normal sinus rhythm with sinus arrhythmia Normal ECG When compared with ECG of 17-Feb-2025 06:26, No significant change was found Referred By: Generic ED Physician Electronically Signed By: RADHA KAISER
[2025-03-01 00:18] LABS: Hematocrit 46.6 % (42.0-52.0); Hemoglobin 15.4 g/dl (14.0-18.0); Imm Gran Abs Auto 0.02 X10*3/uL (0.00-0.03); Imm Gran Pct Auto 0.2 % (0.0-0.4); Lymphocytes Absolute Auto 2.5 X10*3/uL (1.2-4.9); MANUAL DIFF FLAG NO; Mean Corpuscular HGB Conc 33.0 g/dl (31.0-36.0); Mean Corpuscular Hemoglobin 27.0 pg (27.0-33.0); Mean Corpuscular Volume 81.8 fL (80.0-98.0); NRBC Abs Auto 0.000 X10*3/uL (0.0-0.012); NRBC Pct Auto 0.0 /100WBC (0.0-0.2); Platelet Count 377 X10*3/uL (160-400); Red Blood Count 5.70 X10*6/uL (4.60-5.80); White Blood Count 8.6 X10*3/uL (4.8-10.8)
[2025-03-01 00:35] LABS: Anion Gap 13 (12-20); Blood Urea Nitrogen 16 mg/dL (9-16); Calcium 8.9 mg/dL (8.4-10.2); Carbon Dioxide 24 mmol/L (22-29); Chloride 107 mmol/L (96-108); Creatinine Clr Calc Pharmacy 145.0; Estimated Glomerular Filt Rate > 60; Potassium 4.1 mmol/L (3.3-5.1); Sodium 140 mmol/L (135-145)
--- OUTSIDE RECORDS SUMMARY | 2025-03-01 02:10 | XMS_ITS | Clinical Summary ---
Author Organization [facility] Address [address] [place] [address] [place] [id number] Phone Care Team Providers Care Pricing/Signage Team Member Name Role Phone Pcp, Unknown Primary Care [...] 6:44 PM EDT Emergency [facility] [address] [place] [address] Discharge Disposition: Home or Self Care from [...] HS Gen5 <6 0 - 14 ng/L [facility] Blood 01/12/2025 5:55 PM EDT 01/12/2025 6:04 PM EDT Geoffrey Chaney PA-C LAB BLOOD BKR ORDERABLES Rosalva l Result [address] [address] * (ABNORMAL) LFTs (hepatic panel) (01/12/2025 4:58 PM EDT) ALKALINE PHOSPHATASE 68 39 - 117 U/L [facility] TOTAL BILIRUBIN 0.5 0.0 - 1.2 mg/dL [facility] DIRECT BILIRUBIN 0.1 0.0 - 0.2 mg/dL [facility] Bilirubin (Indirect) NOT CALCULATED 0 - 1.5 mg/dL [facility] AST 19 0 - 37 U/L [facility] ALT 33 0 - 40 U/L [facility] TOTAL PROTEIN 8.3(H) 6.5 - 8.0 g/dL [facility] ALBUMIN 4.4 3.9 - 4.8 g/dL [facility] GLOBULIN 3.9 1 - 4.8 g/dL [facility] A/G Ratio 1.13 1.00 - 4.80 RATIO [facility] Blood 01/12/2025 4:58 PM EDT 01/12/2025 5:17 PM EDT Geoffrey Chaney PA-C LAB BLOOD BKR ORDERABLES Rosalva l Result [facility] [address] [place] [address] * (ABNORMAL) CBC and differential (01/12/2025 4:58 PM EDT) WBC 8.78 4.00 - 11.00 K/uL [facility] RBC 5.73 4.50 - 5.90 M/uL [facility] HGB 15.4 13.5 - 17.5 g/dL [facility] HCT 47.9 41.0 - 53.0 % [facility] PLT 427 150 - 450 K/uL [facility] MCV 83.6 80.0 - 100.0 fL [facility] MCH 26.9(L) 27.0 - 31.0 pg [facility] MCHC 32.2 32.0 - 36.0 g/dL [facility] RDW 13.7 11.5 - 14.5 % [facility] MPV 9.3 8.4 - 12.0 fL [facility] NRBC 0.00 0.00 /100 WBCs [facility] ABSOLUTE NRBC 0.00 0.00 K/uL [facility] DIFF METHOD Auto [facility] NEUTS 75.7 48.0 - 76.0 % [facility] LYMPHS 19.5 18.0 - 41.0 % [facility] MONOS 4.1 4.0 - 11.0 % [facility] EOS 0.1 0.0 - 5.0 % [facility] BASOS 0.3 0.0 - 1.5 % [facility] Granulocytes, immature (%) 0.3 0.0 - 0.9 % [facility] ABSOLUTE NEUTS 6.64 1.92 - 7.60 K/uL [facility] ABSOLUTE LYMPHS 1.71 0.72 - 4.10 K/uL [facility] ABSOLUTE MONOS 0.36 0.16 - 1.10 K/uL [facility] ABSOLUTE EOS 0.01 0.00 - 0.50 K/uL [facility] ABSOLUTE BASOS 0.03 0.00 - 0.15 K/uL [facility] Granulocytes, immature 0.03 0.00 - 0.09 K/uL [facility] Blood 01/12/2025 4:58 PM EDT 01/12/2025 5:17 PM EDT Geoffrey Chaney PA-C LAB BLOOD BKR ORDERABLES Rosalva l Result [address] [address] * NT-proBNP (01/12/2025 4:58 PM EDT) NT-PROBNP <36 0 - 125 pg/mL [facility] Blood 01/12/2025 4:58 PM EDT 01/12/2025 5:17 PM EDT Geoffrey Chaney PA-C LAB BLOOD BKR ORDERABLES Rosalva l Result Performing Organization Address [facility]/ZIP Co de Phone Number [address] [address] * Lipase (01/12/2025 4:58 PM EDT) LIPASE 24 16 - 63 U/L [facility] Blood 01/12/2025 4:58 PM EDT 01/12/2025 5:17 PM EDT Geoffrey Chaney PA-C LAB BLOOD BKR ORDERABLES Rosalva l Result Performing Organization Address City/[facility]/ZIP Co de Phone Number [address] [address] * Basic metabolic panel (01/12/2025 4:58 PM EDT) SODIUM 138 133 - 146 mmol/L [facility] CHLORIDE 102 96 - 108 mmol/L [facility] POTASSIUM 4.6 3.3 - 5.1 mmol/L [facility] CO2 24 21 - 35 mmol/L [facility] BUN 11 6 - 19 mg/dL [facility] CREATININE 0.80 0.5 - 1.5 mg/dL [facility] GLUCOSE 86 70 - 99 mg/dL [facility] CALCIUM 10.0 8.4 - 10.3 mg/dL [facility] EGFR >120 >59 mL/min/1.7 3m2 [facility] Comment:Estimated glomerular filtration rate calculated using the CKD-EPI refit equation. ANION GAP 17 10 - 20 mmol/L [facility] Blood 01/12/2025 4:58 PM EDT 01/12/2025 5:17 PM EDT us Geoffrey Chaney PA-C LAB BLOOD BKR ORDERABLES Rosalva l Result [facility] [address] [place] [address] * XR CHEST PA AND LATERAL 2 [...] Glucose, POCT 78 70 - 100 mg/dL [facility] 01/12/2025 4:09 PM EDT 01/12/2025 4:20 PM EDT us Unknown Unknown POINT OF CARE TEST ORDERABLES Final Result Performing Organization Address [facility] Co de Phone Number [address] [address] * ECG 12-LEAD (01/12/2025 3:28 PM EDT) Ventricular Rate EKG/MIN 96 BPM [facility] Atrial Rate 96 BPM [facility] MI Interval 124 ms [facility] QRS Duration 66 ms [facility] QT Interval 338 ms [facility] QTC Interval 427 ms [facility] P [place] 26 degrees [facility] R Wave [place] 20 degrees [facility] T Wave [place] 16 degrees [facility] 01/12/2025 3:28 PM EDT 01/13/2025 11:06 AM EDT Narrative [facility] - 01/13/2025 11:06 AM EDT Normal sinus rhythm Normal ECG No previous ECGs available Confirmed by Dannie Thacker ([id number]) on 01/13/2025 11:06:36 AM us Andrei Felder MD ECG ORDERABLES Final Result [facility] from Last 3 Months Insurance [facility] [employer] Care Teams Pricing/Signage Team Member Relationship Specialty Start Date End Date Pcp, Unknown PCP - General 01/12/25 Additional Source Comments The information contained in this document represents components of the legal health record. It is not the complete legal health record.[facility]
--- NOTE | 2025-03-01 03:26 | ED_ITS ---
HPI - General Adult General Chief complaint: General Medical Stated complaint: General Medical Time Seen by Provider: 03/01/25 03:17 Source: patient Mode of arrival: ambulatory Limitations: no limitations History of Present Illness ED Provider: Neptali BAXTER HPI narrative: The patient is a 29-year-old male presenting to the ED for evaluation of multiple complaints. Patient reports he has suffered from anxiety for the past 3-4 years, was previously treated with a preventative medication which he can not recall the name of, as well as a short stint of CBT by phone. The patient reports approximately 1 year ago he began to feel better and discontinued both medicinal and CBT therapies. Patient reports 3 weeks ago he was a passenger in the car when he developed symptoms consistent with a panic attack, the patient was evaluated at a outside hospital and prescribed 10 mg hydroxyzine. The patient followed up by contacting his PCP who prescribed him 25 mg hydroxyzine, which he reports taking intermittently over the past few weeks. Patient was seen here on 02/17/2025, and again on 02/23/2025, 5 days ago. Patient was initially seen for a 3-5 minutes episode of facial paresthesias with anxiety, had an unremarkable laboratory evaluation and CT head, and was discharged home with the reassurance. Patient returned on 02/23 for swelling/flushing sensation of the right TMJ/ear and was evaluated with repeat laboratory evaluation and CT of the mastoid bone. CT, laboratory evaluation, and viral swabs were negative and the patient was treated with Augmentin, which he continues to take. The patient returns tonight reporting he has been experiencing similar flushing sensation of his face, now involving his forehead over the past 2 days, symptoms are non persistent but cause him to experience anxiety with perseverating thoughts about his health. The patient also reports right trapezius tension with associated headache, mild dizziness, but without focal neurological deficit or syncope. The patient also reports he has been experiencing increasing gastritis/GERD symptoms despite compliance with his antacid prescriptions. The patient denies any associated suicidal or homicidal ideation. The patient denies any associated chest pain, pleurisy, hemoptysis, cough, vomiting, diarrhea, recent sick contacts, or recent trauma. 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 Related Data Previous Rx's ?Medication ?Instructions ?Recorded amoxicillin 875 mg-potassium 1 tab PO BID 7 days #14 t abs 02/23/25 clavulanate 125 mg tablet acetaminophen 500 mg capsule 1,000 mg (2 x 500 mg) PO .q8 PRN 03/01/25 fever or pain #30 caps cyclobenzaprine 10 mg tablet 10 mg PO TID PRN muscle s pasm #14 03/01/25 tabs ibuprofen 600 mg tablet 600 mg PO Q8H PRN fever or p ain 03/01/25 #30 tabs Allergies Allergy/AdvReac Type Severity Reaction Status Date / Time cinnamon AdvReac Anaphylaxis Verified 02/28/25 23:40 Review of Systems 2 Review of Systems: Yes all other systems are reviewed and are negative [facility] Social History Social History Smoked in Last 30 Days: No Use of substances other than those prescribed or required for medical reasons: No Advance Directives: No Advance Directives Information Provided: No Physical Exam ED Vital Signs: Vital Signs - 24 hr 02/28/25 23:36 Temperature 97.7 F Pulse Rate 92 Respiratory Rate 16 Blood Pressure 171/68 H Pulse Oximetry 98 Oxygen Delivery Method Room Air BMI result Body Mass Index 40.4 CONSTITUTIONAL: The patient appears non-toxic, well nourished and in no acute distress. Vital signs as documented. HEAD: Atraumatic, normocephalic. EYES: EOMs grossly intact, pupils equal, conjunctiva clear, no exudate. ENT: Nares patent, no discharge. Airway patent, no audible stridor, visible mucosa is pink and moist without noted lesions. NECK: Trachea is midline, no obvious masses or gross abnormalities. CHEST: Symmetric movement, normal appearance. LUNGS: LS present and CTAB, no w/r/r. Non-labored work of breathing. CARDIAC: Regular Rhythm, S1/S2 appreciated, no murmurs, rubs or gallops. ABDOMEN: Abdomen soft and non-tender x4 quadrants, no palpable masses or organomegaly. : Deferred. EXTREMITIES: Normal tone, moves all extremities spontaneously without reported pain. No obvious acute injury or deformity noted. NEURO: Alert and oriented x3, CN II-XII appear grossly intact. Cerebellar Functioning grossly intact. No obvious sensory or motor deficits. Speech clear and appropriate. PSYCH: Anxious affect, appropriate eye contact, slightly pressure but otherwise fluid speech, with appropriate response to questioning. No reported suicidality or homicidality. SKIN: Warm, dry, color appropriate, normal turgor. No rashes noted. Medications Administered Discontinued Medications Generic Name Dose Route Start Last Admin Trade Name Eduin PRN Reason Stop Dose Admin Acetaminophen 975 mg 03/01/25 04:41 03/01/25 04:51 Acetaminophen 325 Mg Tablet PO 03/01/25 04:42 975 mg ONCE ONE Administration Cyclobenzaprine HCl 10 mg 03/01/25 04:41 03/01/25 04:51 Cyclobenzaprine Hcl 10 Mg Tablet PO 03/01/25 04:42 10 mg ONCE ONE Administration Ibuprofen 600 mg 03/01/25 04:41 03/01/25 04:51 Ibuprofen 600 Mg Tablet PO 03/01/25 04:42 600 mg ONCE ONE Administration Lidocaine 1 patch 03/01/25 04:41 03/01/25 04:50 Lidocaine 4 % Patch Adh..Patch TRANSDERMA 03/01/25 04:42 1 patch ONCE ONE Administration Protocol Medical Decision Making Medical Decision Making MDM Narrative: 4:43 AM 03/01/2025 (Dana BAXTER): The patient is a 29-year-old male presenting to the ED for evaluation of multiple complaints. Patient reports he has suffered from anxiety for the past 3-4 years, was previously treated with a preventative medication which he can not recall the name of, as well as a short stint of CBT by phone. The patient reports approximately 1 year ago he began to feel better and discontinued both medicinal and CBT therapies. Patient reports 3 weeks ago he was a passenger in the car when he developed symptoms consistent with a panic attack, the patient was evaluated at a outside hospital and prescribed 10 mg hydroxyzine. The patient followed up by contacting his PCP who prescribed him 25 mg hydroxyzine, which he reports taking intermittently over the past few weeks. Patient was seen here on 02/17/2025, and again on 02/23/2025, 5 days ago. Patient was initially seen for a 3-5 minutes episode of facial paresthesias with anxiety, had an unremarkable laboratory evaluation and CT head, and was discharged home with the reassurance. Patient returned on 02/23 for swelling/flushing sensation of the right TMJ/ear and was evaluated with repeat laboratory evaluation and CT of the mastoid bone. CT, laboratory evaluation, and viral swabs were negative and the patient was treated with Augmentin, which he continues to take. The patient returns tonight reporting he has been experiencing similar flushing sensation of his face, now involving his forehead over the past 2 days, symptoms are non persistent but cause him to experience anxiety with perseverating thoughts about his health. The patient also reports right trapezius tension with associated headache, mild dizziness, but without focal neurological deficit or syncope. The patient also reports he has been experiencing increasing gastritis/GERD symptoms despite compliance with his antacid prescriptions. The patient denies any associated suicidal or homicidal ideation. The patient denies any associated chest pain, pleurisy, hemoptysis, cough, vomiting, diarrhea, recent sick contacts, or recent trauma. 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 On exam patient is nontoxic appearing, no focal neurological deficit, no increased respiratory effort, lung sounds clear to auscultation bilaterally, no abdominal tenderness, ENT exam is unremarkable. The patient's laboratory evaluation today is reassuring, no leukocytosis, anemia, electrolyte abnormality, or LEXIS. The patient's EKG is nonischemic. An extensive discussion was held with both the patient and his girlfriend about how, in the setting of multiple reassuring workups, his symptoms are most likely somatization of his underlying stress/anxiety regarding his health or other unknown triggers. Patient was reassured extensively regarding his nonemergent workups over the past 3 ED visits. The patient was offered to stay in the ED for crisis evaluation in the morning, however patient and patient's girlfriend declined and stated they will follow up with his PCP for re-evaluation, preventative anxiolytics, and psychiatry referral. The patient was amenable to treatment for his right trapezius muscle tension, we will treat with anti- inflammatories, Flexeril, and lidocaine patch. Patient was urged to return to the ED with any uncontrolled panic symptoms, or thoughts of harming himself or others. Admission/Observation Consideration of admission/observation: Escalation of care including admission/observation considered Lab Data MDM Lab Attestation statement: I reviewed the patient's lab results. 03/01/25 00:12 03/01/25 00:12 Labs: Lab Results 03/01/25 Range/Units 00:12 WBC 8.6 (4.8-10.8) X10*3/uL RBC 5.70 (4.60-5.80) X10*6/uL Hgb 15.4 (14.0-18.0) g/dl Hct 46.6 (42.0-52.0) % MCV 81.8 (80.0-98.0) fL MCH 27.0 (27.0-33.0) pg MCHC 33.0 (31.0-36.0) g/dl RDW 13.8 (11.0-16.0) % Plt Count 377 (160-400) X10*3/uL MPV 8.9 L (9.4-12.4) fL Immature Gran % (Auto) 0.2 (0.0-0.4) % Neut % (Auto) 63.5 (45-73) % Lymph % (Auto) 29.0 (20-40) % [place] % (Auto) 5.7 (2-11) % Eos % (Auto) 1.0 (0-4) % Baso % (Auto) 0.6 (0-2) % Lymph # (Auto) 2.5 (1.2-4.9) X10*3/uL [place] # (Auto) 0.5 (0.1-1.2) X10*3/uL Eos # (Auto) 0.1 (0.0-0.4) X10*3/uL Baso # (Auto) 0.1 (0.0-0.2) X10*3/uL Abs Immat Gran (auto) 0.02 (0.00-0.03) X10*3/uL Absolute Neuts (auto) 5.5 (2.0-8.3) x10*3/uL Absolute Nucleated RBC 0.000 (0.0-0.012) X10*3/uL Nucleated RBC % (auto) 0.0 (0.0-0.2) /100WBC Sodium 140 (135-145) mmol/L Potassium 4.1 (3.3-5.1) mmol/L Chloride 107 (96-108) mmol/L Carbon Dioxide 24 (22-29) mmol/L Anion Gap 13 (12-20) BUN 16 (9-16) mg/dL Creatinine 0.99 (0.5-1.4) mg/dL Estim Creat Clear Calc 145.0 Estimated GFR > 60 Random Glucose 98 (60-115) mg/dL Calcium 8.9 (8.4-10.2) mg/dL Independent Interpretation I performed an independent interpretation of an: EKG (EKG shows sinus rhythm with a rate of 79, no evidence of acute ischemia, no ST elevation, no ectopy. QTC 426. Compared to previous on 02/17/2025 there are no significant morphology changes. ) Discharge Plan Discharge Clinical Impression: Somatization disorder, Anxiety about health Patient Disposition: Home, Self-Care Instructions: Generalized Anxiety Disorder (ED), Panic Disorder (ED), Cognitive Behavioral Therapy (ED), Anxiety (ED) Additional Instructions: Thank you for choosing [facility]'s Emergency Department for your care today. Thankfully your EKG, laboratory evaluation, vital signs, and exam today are all reassuring. Additionally your CT imaging within the past 2 weeks shows no evidence of any stroke or other emergent neurologic process contributing to your symptoms. At this time there is no indication for admission to the hospital or continued ED observation, and it is safe to discharge you home. Your symptoms appear consistent with somatization of anxiety. This when your body exhibits various symptoms as an expression of your mental stress/anxiety. Symptoms can be wide ranging including flushing feeling, muscle spasms/tension, headaches, dizziness, restlessness, poor sleep, shortness of breath, chest discomfort, and acid reflux. We are treating your muscle tension today with anti-inflammatories, topical analgesics, and a muscle relaxer. Please do not take the muscle relaxer at the same time as hydroxyzine as it may cause severe grogginess. It is extremely important that you understand these interventions are only treating the symptoms themselves and do not treat stress/anxiety which is likely the greater cause of the symptoms. You must follow up with your primary care provider for consideration of daily preventative anxiety medication in addition to your hydroxyzine, as well as to request referral to a cognitive behavioral therapist or psychiatrist. Cognitive behavioral therapy is essential to comprehensive treatment of anxiety. You may take alternating (staggered) doses of ibuprofen 600mg and Tylenol 1000mg every 4 hours as needed for any additional pain. Please stay well hydrated and get plenty of rest. As a part of your care plan, you have also been prescribed a muscle relaxer called Flexeril. Please take this medication only for severe pain or spasm that is not relieved by ibuprofen and/or Tylenol. Muscle relaxer medications can carry high risk of unintentional addiction and abuse. Take this medication only as directed and only if absolutely necessary. This medicine can make you drowsy, you are not allowed to drive, operate heavy machinery, or be the sole care provider for children while taking this medication. We have treated you with a lidocaine patch, if you find this provides you significant relief additional patches can be purchased at any local pharmacy without a prescription. Please follow up with your primary care physician for re-evaluation, additional management of your symptoms, and continued preventative care. If you do not have a primary care physician, please call the [facility] at [phone] to establish a new primary care physician. While waiting to establish your new primary care physician, you can call our [facility] at [phone] for non-emergency needs. Please return to the emergency department if you develop a severe or sudden change in your symptoms, a fever over 100.4 that does not improve with Tylenol or Ibuprofen, recurrent vomiting, thoughts of harming yourself or others, or any other new or worsening symptoms or concerns. Prescriptions: New cyclobenzaprine 10 mg tablet 10 mg PO TID PRN (Reason: muscle spasm) Qty: 14 0RF ibuprofen 600 mg tablet 600 mg PO Q8H PRN (Reason: fever or pain) Qty: 30 0RF acetaminophen 500 mg capsule 1,000 mg PO .q8 PRN (Reason: fever or pain) Qty: 30 0RF No Action amoxicillin-pot clavulanate 875-125 mg tablet 1 tab PO BID 7 Days Qty: 14 0RF Stand Alone Forms: Work/School Release Print Language: [place]
[2025-03-01] MEDS: Lidocaine 4 % Patch ADH..PATCH 1 PATCH TRANSDERMA (04:50)
--- NOTE | 2025-03-01 05:50 | PC.NURSE ---
reviewed discharge instruction with pt. pt verbalized understanding, no sign of distress upon discharge. medicated per may.
[2025-03-01 05:51] VITALS: BP 171/68; PULSE 92; RESP 16; TEMP 36.5; O2SAT 98
== END 2025-03-01 05:51 | disposition home or self-care (01) ==
PROVIDERS: Emergency Provider Emergency Medicine
DX: F41.9 Anxiety disorder, unspecified (principal); F45.9 Somatoform disorder, unspecified
CPT/HCPCS: 36415; 80048; 85025; 93005; 99283; 99284

== ENCOUNTER → 2025-02-28 23:45 | Outpatient (BNV) | payer SELFPAY | PROVIDERS: Emergency Provider Emergency Medicine; Visit Provider Internal Medicine | DX: R53.1 Weakness (principal); R42 Dizziness and giddiness | CPT/HCPCS: 93010 ==